=== PATIENT | male | born 1960 | race Caucasian/White ===

== ENCOUNTER 2020-03-25 06:53 | Day surgery (SDC) | payer BC ==
[~2020-03-25] VITALS: Ht 182.9 cm; Wt 80.5 kg
[2020-03-25 07:13] LABS: EOSINOPHILS 2.4 % (0-7); HEMATOCRIT 35.1 % (42.0-54.0); HEMOGLOBIN 10.1 g/dL (13.5-17.5); IMMATURE GRANULOCYTES 0.1 % (0-5); LYMPHOCYTES 25.5 % (15-50); MCHC 28.8 g/dL (31.0-37.0); MCV 67.2 fL (80.0-100.0); MEAN PLATELET VOLUME 7.9 fL (7.4-10.4); MONOCYTES 15.4 % (2-11); NEUTROPHILS 55.6 % (40-80); PLATELET COUNT 462 10x3/uL (130-400); RBC 5.22 10x6/uL (4.20-6.10); RDW 18.4 % (11.5-14.5); WBC 7.1 10x3/uL (4.8-10.8)
[2020-03-25 07:14] LABS: MCH 19.3 pg (26.0-34.0)
[2020-03-25 07:38] LABS: ANION GAP 12.2 mmol/L (8-16); CALCIUM 8.8 mg/dL (8.5-10.1); CARBON DIOXIDE 26.3 mmol/L (21.0-32.0); CREATININE - SERUM 1.1 mg/dL (0.6-1.3); POTASSIUM - SERUM 4.5 mmol/L (3.5-5.1)
[2020-03-25] MEDS ORDERED: LIPITOR40 MG PO (07:45)
[2020-03-25] MEDS ORDERED: BACLOFEN10 MG PO (07:45)
[2020-03-25] MEDS ORDERED: ASPIRIN81 MG PO (07:46)
[2020-03-25 07:59] VITALS: BP 106/67; Ht 182.9 cm; Wt 80.5 kg
--- NOTE | 2020-03-25 10:01 | NUR ---
0950-RECD TO ROOM FROM PACU. ALERT. IV PATENT. RESP WITH EASE. HX OF CVA WITH APHASIA. AT BEDSIDE, DR ATWOOD REPORTS FINDINGS AND RECOMMENDATIONS.
--- NOTE | 2020-03-25 10:29 | NUR ---
1030-DRESSED WITH ASSIST. 1037-D/C HOME VIA WHEELCHAIR WITH .
--- NOTE | 2020-03-28 09:47 | OP ---
PATIENT NAME: STAN ARITA III MEDICAL RECORD: [id number] :56 LOCATION:D.OPS ADMISSION DATE: SURGEON: RUDOLPH ATWOOD DO DATE OF OPERATION: 03/25/2020 PROCEDURE: EGD with biopsies. INDICATIONS FOR PROCEDURE: 1. Personal history of malignant neoplasm of the esophagus, status post esophagectomy, chemotherapy, and radiation therapy. 2. Abnormal findings on PET scan of the esophagus. 3. Dysphagia. 4. Gastroesophageal reflux disease. SCOPE: Olympus video gastroscope. TIVA was initially attempted, but with passage of the endoscope into the stomach, the stomach was full of food, so the endoscope was withdrawn from the patient and rapid sequence intubation was performed for airway protection with the remainder of the procedure being done under general anesthesia with propofol. COMPLICATIONS: None immediate. FINDINGS: Informed consent was given. The patient was made comfortable with the above medication and eventually with general anesthesia. The endoscope was advanced under direct visualization through the mouth to the second portion of the duodenum with ease. The esophagus appeared normal down to approximately 25 cm. At 25 cm, down to the anastomosis, which was located approximately 30 cm, there was extensive erosive reflux esophagitis grade D with ulcers present. There were no obvious dysplastic lesions present within this mucosa. There was a nodule versus a plaque located at approximately 25 cm that appeared to be reactive in nature. Multiple cold forceps biopsies were taken from this nodule as well as the extensive erosive esophagitis to rule out recurrent malignancy. The endoscope was advanced beyond the anastomosis and into the stomach and retroflexed to view the cardia involved in the anastomosis. There were no nodules or abnormal appearing tissue on the underside of the anastomosis, so no biopsies were performed from this site. There was a significant amount of food remaining in the stomach, so evaluation of the entire stomach was not possible. The endoscope was advanced beyond the pylorus into the duodenum, which appeared normal to the second portion. The endoscope was then withdrawn from the patient. The patient tolerated the procedure well and there were no immediate complications. IMPRESSION: 1. Erosive esophagitis, grade D with ulcers present. 2. Evidence of a prior esophagectomy and gastric pull-up with anastomosis located at 30 cm. 3. Distal esophageal nodule, status post multiple biopsies. 4. Likely gastroparesis based on endoscopic findings of food retention. PLAN AND RECOMMENDATIONS: 1. Discharge home when recovery parameters are met. 2. Follow up biopsy specimen results. 3. GERD diet and reflux precautions. OPERATIVE REPORT [id number] STAN ARITA II 4. If the patient is not already receiving antacid therapy will offer a proton pump inhibitor and Carafate suspension based on findings. 5. Follow up with Dr. Patterson as scheduled. 6. Further recommendations pending results of biopsies taken today. 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
== END 2020-03-25 10:38 | disposition home or self-care (01) ==
LOC: D.OPS 06:53
PROVIDERS: Anesthesiology; ATTEND Internal Medicine Gastroenterology
DX: R13.10 Dysphagia, unspecified (principal); Z85.01 Personal history of malignant neoplasm of esophagus; K21.0 Gastro-esophageal reflux disease with esophagitis

== ENCOUNTER 2020-05-16 08:21 | Emergency (ER) | payer BC ==
[~2020-05-16] VITALS: Ht 182.9 cm; Wt 89.5 kg
[~2020-05-16 08:21] MED LIST: ASPIRIN81 MG PO; BACLOFEN10 MG PO; LIPITOR40 MG PO
[2020-05-16 08:28] VITALS: Ht 182.9 cm; Wt 89.5 kg
[2020-05-16] MEDS ORDERED: CARAFATE1 G PO (08:31)
[2020-05-16] MEDS ORDERED: OMEPRAZOLE20 M1 PO (08:31)
[2020-05-16 08:52] LABS: APTT 26.8 SECONDS (22.8-39.4); CALC OSMOLALITY 276 mosm/kg (275-300); CALCIUM 8.4 mg/dL (8.5-10.1); CARBON DIOXIDE 25.9 mmol/L (21.0-32.0); CHLORIDE - SERUM 107 mmol/L (98-107); CREATININE - SERUM 1.2 mg/dL (0.6-1.3); GLUCOSE 111 mg/dL (74-106); INR 1.05 (0.85-1.17); POTASSIUM - SERUM 4.2 mmol/L (3.5-5.1); PROTIME 13.7 SECONDS (11.6-15.0); SODIUM 137 mmol/L (136-145); UREA NITROGEN 19 mg/dL (7-18); eGFR NON AFRICAN AMERICAN 65 mL/min (90-120)
[2020-05-16 09:09] LABS: ALBUMIN 3.3 g/dL (3.4-5.0); ALKALINE PHOSPHATASE 66 U/L (30-120); ALT (SGPT) 21 U/L (10-68); BASOPHILS 1.1 % (0-2); CKMB 1.8 U/L (0.0-3.6); CREATINE KINASE 122 UL (21-232); EOSINOPHILS 2.4 % (0-7); HEMATOCRIT 34.1 % (42.0-54.0); HEMOGLOBIN 9.8 g/dL (13.5-17.5); IMMATURE GRANULOCYTES 0.1 % (0-5); LYMPHOCYTES 23.7 % (15-50); MAGNESIUM - SERUM 1.9 mg/dL (1.8-2.4); MCHC 28.7 g/dL (31.0-37.0); MCV 65.5 fL (80.0-100.0); MEAN PLATELET VOLUME 8.9 fL (7.4-10.4); NEUTROPHILS 56.7 % (40-80); PLATELET COUNT 447 10x3/uL (130-400); PROTEIN - SERUM 6.6 g/dL (6.4-8.2); RBC 5.21 10x6/uL (4.20-6.10); RDW 18.5 % (11.5-14.5); THYROID STIMULATING HORMONE 1.68 uIU/mL (0.36-3.74); TROPONIN-I < 0.017 ng/mL (0.000-0.060); WBC 7.5 10x3/uL (4.8-10.8)
[2020-05-16 09:11] LABS: MCH 18.8 pg (26.0-34.0)
[2020-05-16 11:00] VITALS: BP 136/83
== END 2020-05-16 11:11 | disposition home or self-care (01) ==
LOC: D.ER 08:21
PROVIDERS: Family Medicine
DX: S50.312A Abrasion of left elbow, initial encounter (principal); Z86.73 Personal history of transient ischemic attack (TIA), and cerebral infarction without residual deficits; W19.XXXA Unspecified fall, initial encounter; Y93.9 Activity, unspecified; Y92.9 Unspecified place or not applicable; K21.9 Gastro-esophageal reflux disease without esophagitis; R53.1 Weakness; R13.10 Dysphagia, unspecified